=== PATIENT | female | born 1970 | race Caucasian/White ===

== ENCOUNTER 2020-05-02 10:01 | Outpatient (CLI) | payer OTHER, SELFPAY ==
--- NOTE | 2020-05-02 10:04 | ECG_ITS ---
Measurements Intervals [place] Rate: 65 P: 37 WA: 166 QRS: 17 QRSD: 93 T: 40 QT: 403 QTc: 420 Interpretive Statements SINUS RHYTHM INCOMPLETE RIGHT BUNDLE BRANCH BLOCK BORDERLINE ECG Electronically Signed On 05-02-2020 10:15:00 CDT by Valentin Najera D.O.
== END 2020-05-02 10:02 | disposition home or self-care (01) ==
LOC: ANHSURGERY 10:04
PROVIDERS: PCP Family Medicine; Visit Provider Otolaryngology
DX: I10 Essential (primary) hypertension (principal); I45.10 Unspecified right bundle-branch block
CPT/HCPCS: 93005

== ENCOUNTER 2020-05-03 00:44 | Outpatient (CLI) | payer OTHER, SELFPAY ==
[2020-05-03 18:42] LABS: SARS-CoV-2 RNA PCR Negative
== END 2020-05-03 00:45 | disposition home or self-care (01) ==
LOC: ANHCOVIDDT 00:44
PROVIDERS: PCP Family Medicine; Visit Provider Otolaryngology
DX: Z01.812 Encounter for preprocedural laboratory examination (principal); Z20.828 Contact with and (suspected) exposure to other viral communicable diseases
CPT/HCPCS: 87635; C9803; U0003

== ENCOUNTER 2020-05-05 01:32 | Day surgery (SDC) | payer OTHER, SELFPAY ==
[2020-04-28 13:46] VITALS: BMI 36.0
--- NOTE | 2020-05-04 16:05 | PM.IMHP ---
H&P: HPI History of Present Illness Date/Time: 05/04/20 16:05 Chief complaint: Chronic Tonsilitis Narrative: 49-year-old female with no significant past medical history other than Crohn's disease and a distant history of tachycardia for which the patient takes a baby aspirin daily. The patient presents with 1.5 years of sore throat and tonsil lithiasis. No inciting factor no provoking factor only palate in factor is a 3 month history of antibiotic use 1st the patient took for different reason. Review of Systems Constitutional: Constitutional: Denies fatigue and Denies fever(s) Eyes: Eyes: Denies blurry vision and Denies change in vision ENT: Reports as per HPI Cardiovascular: Cardiovascular: Denies chest pain Respiratory: Respiratory: Denies cough Endocrine: Endocrine: Denies fatigue Hematologic/Lymphatic: Hematologic/Lymphatic: Denies lymphadenopathy FOR[facility]LY [facility], [facility] Social History Social History Smoking packs per day: 0.5 Smoking cigarettes per day: 10.0 Years smoked: 15 Smoking pack-years: 7.50 Smoking status: Former smoker Tobacco type: cigarettes Second hand tobacco smoke exposure: No Smoking end date: 09/22/05 Additional smoking assessment comments: QUIT 14 YEARS AGO Alcohol intake: current Substance use: never Substance use type: does not use Additional occupation/education comments: Self Employed Gender identity (if verbalized by the patient): Female Spiritual care concerns: No Agree to blood products: Yes Meds Home Medications and Allergies Home Medications Medication Instructions Recorded Confirmed Type blood sugar diagnostic #100 each 09/30/19 Rx sulfasalazine 500 mg tablet 1,500 mg PO BID tablet 10/13/19 04/28/20 History lisinopril 10 mg tablet 10 mg PO DAILY #90 tablet 10/14/19 04/28/20 Rx apple cider vinegar 600 mg capsule 700 mg PO DAILY cap 11/11/19 04/28/20 History aspirin 81 mg tablet,delayed 81 mg PO DAILY 11/11/19 04/28/20 History release azathioprine 50 mg tablet 300 mg PO DAILY tablet 11/11/19 04/28/20 History azelastine 0.05 % eye drops 1 drop EACH EYE BID PRN 11/11/19 04/28/20 History certolizumab pegol 400 mg SUB-Q MONTHLY 11/11/19 04/28/20 History cholecalciferol (vitamin D3) 1,250 50,000 unit PO WEEKLY 11/11/19 04/28/20 History mcg (50,000 unit) capsule fluticasone propionate 50 1 spray NASAL DAILY 11/11/19 04/28/20 History mcg/actuation nasal spray,suspension folic acid 1 mg tablet 1 mg PO DAILY 11/11/19 04/28/20 History garlic 5,000 mcg tablet 5 mg PO DAILY 11/11/19 04/28/20 History alprazolam 0.5 mg tablet 0.5 mg PO TID PRN #90 tablet 01/03/20 04/28/20 Rx metformin 2,000 mg PO QPM 04/28/20 04/28/20 History wheat dextrin 3 gram/3.5 gram oral 1 packet PO DAILY 04/28/20 04/28/20 History powder packet Allergies Allergy/AdvReac Type Severity Reaction Status Date / Time ciprofloxacin Allergy Unknown RED Verified 04/28/20 13:47 STREAKS UP ARM codeine Allergy Unknown Abdominal Verified 04/28/20 13:47 discomfort walnut Allergy THROAT Verified 04/28/20 13:47 SWELLING Exam Const: General: cooperative, healthy appearing, comfortable, well developed and alert HENMT: Head: normal to inspection, normocephalic and atraumatic Ears: hearing grossly normal bilaterally, external ears normal, TM's normal bilaterally and EAC's normal General nose exam: Normal external nose present, Normal nares present, No nasal polyps present, Normal nasal mucous membranes and turbinates present and Normal septum present Face and sinus: normal facial exam Mouth: Yes Normal oral and palatal mucosa present, Yes lip normal, Yes tongue normal and Yes moist mucous membranes Teeth and gingiva: dentition normal and gingiva normal Throat: uvula midline and other ( Erythematous pharynx and tonsils asymmetric) Eyes: General: appearance normal, both eyes and all related structures Periorb
[2020-05-05] VITALS (11 sets, daily range): BP systolic 120–143; BP diastolic 73–101; PULSE 62–85; RESP 12–18; TEMP 36.4; O2SAT 99–100
[2020-05-05] MEDS: ACETAMINOPHEN 500 MG TABLET 1000 MG PO (06:50)
[2020-05-05] MEDS: LACTATED RINGERS 1,000 ML 30 ML IV CONT ×2 (06:50→08:35)
[2020-05-05 06:58] LABS: Glucose Point of Care 114 (65-105)
--- NOTE | 2020-05-05 07:15 | WPDHPUPDATE1 ---
History and Physical Update Update Date/Time: 05/05/20 07:15 History and Physical has been reviewed, including an updated exam of the patient. There are NO changes in the patient's condition. Risks, benefits, and alternatives have been discussed and questions answered. Patient agrees to proceed with procedure.
[2020-05-05] MEDS: SCOPOLAMINE 1.5 MG PATCH TRANSDERM (07:20)
[2020-05-05 08:40] LABS: Glucose Point of Care 113 (65-105)
[2020-05-05] MEDS: ONDANSETRON INJ 4 MG/2 ML VIAL IV PUSH (09:13)
[2020-05-05] MEDS: diphenhydrAMINE HCl INJ 50 MG/ML VIAL 25 MG IV PUSH (09:16)
--- NOTE | 2020-05-05 10:16 | PM.PROC ---
Procedure Note - Detailed Date of procedure: 05/05/20 Pre-op diagnosis: Chronic Tonsilitis Post-op diagnosis: same Procedure performed: 1. Tonsillectomy Description of procedure: patient was correctly identified and consent was verified in the preoperative area. The patient was then brought to the operating room and a time-out was performed. General anesthesia was induced and endotracheal tube was secured the patient's airway and left in the midline. Mango mouth gag was placed in the patient's mouth exposing the bilateral tonsils. The tonsils were erythematous and cryptic with a scarred appearance. Bovie electrocautery with a protected tip at a setting of 10 was utilized to perform a extracapsular dissection of the bilateral tonsils. Suction Bovie at a setting of 20 was utilized for hemostasis. following the Tonsillectomy a red rubber catheter was placed through the nose and adenoid pad was examined. Minimal adenoid tissue present, And this was not removed. Following the procedure the mouth gag was relaxed for 20 seconds and reopened no bleeding was noted. Care of the patient was returned to anesthesiology as this marked the end of the procedure. Anesthesia: GLMA Surgeon: Bao Ott MD Estimated blood loss (mL): 25 Drains: No Pathology: yes ( left and right tonsil) Complications: No immediate complications Condition: stable Disposition: PACU Findings: Erythematous scarred and bilateral tonsils minimal adenoid tissue
[2020-05-05] MEDS: IBUPROFEN SUSPENSION 200 MG/10 ML UDC 400 MG PO (10:32)
--- NOTE | 2020-05-08 09:50 | SUR.PHASEII ---
LATE ENTRY: I CALLED THIS PATIENT ON 05/06/20 TO CHECK ON HER. SHE REPORTED PERSISTENT THROAT PAIN 6-7/10 AND NECK SWELLING EVEN THOUGH TAKING TYLENOL, IBUPROFEN AND OXYCODONE AND APPLYING ICE PACKS TO NECK. PT REPORTED SOME DIFFICULTY BREATHING IF SHE LAID FLAT ON HER BACK BUT WAS ABLE TO BREATHE WITHOUT DIFFICULTY WHEN ELEVATING HEAD WITH 3 PILLOWS. PT ALSO REPORTED NASAL CONGESTION. I SUGGESTED COOL MIST VAPORIZER AND TO CALL THE SURGEON TO REVIEW HER SYMPTOMS. PT SAID SHE COULD DEAL WITH THE PAIN AND DIDN'T WANT TO CALL THE SURGEON. I INSTRUCTED HER TO GO TO THE ER IF SHE HAD DIFFICULTY BREATHING.
--- NOTE | 2020-07-04 09:57 | WPDANESEPPF ---
Anes - Initial Pre Proc Eval Procedure: Operation Date: 05/05/20 07:30 Proposed Procedures p Tonsillectomy - Bao Ott MD Date/Time: 07/04/20 09:57 Surgeon: Bao Ott MD Pre Op Diagnosis: Chronic Tonsilitis Patient Data Age: 50 Gender: F Height: 5 ft 4 in Weight: 94.2 kg Last Vital Signs Temp 36.4 C L 05/05/20 08:16 Pulse 67 05/05/20 10:55 Resp 14 05/05/20 10:55 BP 123/73 05/05/20 10:55 Pulse Ox 100 05/05/20 10:55 Allergies Allergy/AdvReac Type Severity Reaction Status Date / Time ciprofloxacin Allergy Unknown RED Verified 05/18/20 09:23 STREAKS UP ARM codeine Allergy Unknown Abdominal Verified 05/18/20 09:23 discomfort walnut Allergy THROAT Verified 05/18/20 09:23 SWELLING Home Medications Medication Instructions Recorded Confirmed Type blood sugar diagnostic #100 each 09/30/19 Rx sulfasalazine 500 mg tablet 1,500 mg PO BID tablet 10/13/19 04/28/20 History lisinopril 10 mg tablet 10 mg PO DAILY #90 tablet 10/14/19 04/28/20 Rx apple cider vinegar 600 mg capsule 700 mg PO DAILY cap 11/11/19 04/28/20 History aspirin 81 mg tablet,delayed 81 mg PO DAILY 11/11/19 04/28/20 History release azathioprine 50 mg tablet 300 mg PO DAILY tablet 11/11/19 04/28/20 History azelastine 0.05 % eye drops 1 drop EACH EYE BID PRN 11/11/19 04/28/20 History certolizumab pegol 400 mg SUB-Q MONTHLY 11/11/19 04/28/20 History cholecalciferol (vitamin D3) 1,250 50,000 unit PO WEEKLY 11/11/19 04/28/20 History mcg (50,000 unit) capsule fluticasone propionate 50 1 spray NASAL DAILY 11/11/19 04/28/20 History mcg/actuation nasal spray,suspension folic acid 1 mg tablet 1 mg PO DAILY 11/11/19 04/28/20 History garlic 5,000 mcg tablet 5 mg PO DAILY 11/11/19 04/28/20 History alprazolam 0.5 mg tablet 0.5 mg PO TID PRN #90 tablet 01/03/20 04/28/20 Rx metformin 2,000 mg PO QPM 04/28/20 04/28/20 History wheat dextrin 3 gram/3.5 gram oral 1 packet PO DAILY 04/28/20 04/28/20 History powder packet oxycodone 5 mg PO Q8H PRN #150 ml 05/05/20 Rx oxycodone 5 mg/5 mL oral solution 5 mg PO Q8H PRN #150 ml 05/05/20 Rx oxycodone 5 mg/5 mL oral solution 5 mg PO Q8H PRN #150 ml 05/05/20 Rx lidocaine HCl 2 % mucosal solution 15 ml PO TID #600 ml 05/09/20 Rx oxycodone 5 mg/5 mL oral solution 5 mg PO Q8H PRN #50 ml 05/10/20 Rx Patient hx anesthesia problems: none Family hx anesthesia problems: none PMFSH Past Medical History Medical History Crohn disease JUDAH (generalized anxiety disorder) Hyperlipidemia Hypertension Tonsil stone Type 2 diabetes mellitus Surgical History Surgical History H/O abdominal hysterectomy History of appendectomy History of bladder repair surgery History of cholecystectomy Family History Family History Father Family history of mental disorder Hypertension Family history of elevated blood lipids Grandparent Hypertension Asthma Family history of elevated blood lipids Family history of cardiovascular disease Family history of kidney disease Malignant neoplasm of prostate Family history of lung cancer Mother Family history of malignant neoplasm of brain Social History Social History Smoking packs per day: 0.5 Smoking cigarettes per day: 10.0 Years smoked: 15 Smoking pack-years: 7.50 Smoking status: Former smoker Tobacco type: cigarettes Second hand tobacco smoke exposure: No Smoking end date: 09/22/05 Additional smoking assessment comments: QUIT 14 YEARS AGO Alcohol intake: current Substance use: never Substance use type: does not use Additional occupation/education comments: Self Employed Gender identity (if verbalized by the patient): Female Spiritual care concerns: No
== END 2020-05-05 11:18 | disposition home or self-care (01) ==
PROVIDERS: PCP Family Medicine; Visit Provider Otolaryngology
PROC: (CPT 42826; principal; 2020-05-05 07:30)
DX: J35.01 Chronic tonsillitis (principal); Z87.891 Personal history of nicotine dependence; Z79.82 Long term (current) use of aspirin; Z79.84 Long term (current) use of oral hypoglycemic drugs
CPT/HCPCS: 42826; 88304; A9270; J0330; J1100; J1200; J2250; J2405; J2704; J3010; J7120

== ENCOUNTER → 2021-03-12 00:24 | Outpatient (CLI) | payer OTHER, SELFPAY | PROVIDERS: PCP Family Medicine; Visit Provider Internal Medicine Gastroenterology | DX: Z01.812 Encounter for preprocedural laboratory examination (principal); Z20.822 Contact with and (suspected) exposure to COVID-19 | CPT/HCPCS: C9803; U0003; U0005 ==

== ENCOUNTER 2021-03-13 08:00 | Outpatient (CLI) | payer OTHER, SELFPAY ==
[2021-03-13 14:49] LABS: EDCOVIDSCREEN Negative (Negative)
== END 2021-03-13 08:01 | disposition home or self-care (01) ==
LOC: ANHLAB 03-21 10:43
PROVIDERS: Visit Provider Internal Medicine Gastroenterology
DX: Z01.812 Encounter for preprocedural laboratory examination (principal); Z20.822 Contact with and (suspected) exposure to COVID-19
CPT/HCPCS: 36415; 87426; C9803

== ENCOUNTER 2021-03-15 01:12 | Day surgery (SDC) | payer OTHER, SELFPAY ==
[2021-02-23 13:48] VITALS: BMI 35.9
[2021-03-15 07:52] VITALS: BP 149/88; PULSE 79; RESP 18; TEMP 35.5; O2SAT 100; BMI 36.1
[2021-03-15] MEDS: LACTATED RINGERS 1,000 ML 150 ML IV CONT (08:11)
--- NOTE | 2021-03-15 08:33 | WPDANESEPPF ---
Anes - Initial Pre Proc Eval Procedure: Operation Date: 03/15/21 09:00 Proposed Procedures p Colonoscopy - Kleber Angeles DO Date/Time: 03/15/21 08:33 Surgeon: Kleber Angeles DO Pre Op Diagnosis: crohn's disease Patient Data Age: 50 Gender: F Height: 1.63 m Weight: 95.4 kg Last Vital Signs Temp 35.5 C L 03/15/21 07:52 Pulse 79 03/15/21 07:52 Resp 18 03/15/21 07:52 BP 149/88 H 03/15/21 07:52 Pulse Ox 100 03/15/21 07:52 Allergies Allergy/AdvReac Type Severity Reaction Status Date / Time ciprofloxacin Allergy Unknown RED Verified 03/15/21 07:50 STREAKS UP ARM codeine Allergy Unknown Abdominal Verified 03/15/21 07:50 discomfort walnut Allergy THROAT Verified 03/15/21 07:50 SWELLING Home Medications Medication Instructions Recorded Confirmed Type sulfasalazine 500 mg tablet 1,500 mg PO BID tablet 10/13/19 03/15/21 History apple cider vinegar 600 mg capsule 700 mg PO DAILY cap 11/11/19 03/15/21 History aspirin 81 mg tablet,delayed 81 mg PO DAILY 11/11/19 03/15/21 History release azathioprine 50 mg tablet 300 mg PO DAILY tablet 11/11/19 03/15/21 History azelastine 0.05 % eye drops 1 drop EACH EYE BID PRN 11/11/19 03/15/21 History certolizumab pegol 400 mg SUB-Q MONTHLY 11/11/19 03/15/21 History cholecalciferol (vitamin D3) 1,250 50,000 unit PO WEEKLY 11/11/19 03/15/21 History mcg (50,000 unit) capsule fluticasone propionate 50 1 spray NASAL DAILY 11/11/19 03/15/21 History mcg/actuation nasal spray,suspension folic acid 1 mg tablet 1 mg PO DAILY 11/11/19 03/15/21 History garlic 5,000 mcg tablet 5 mg PO DAILY 11/11/19 03/15/21 History wheat dextrin 3 gram/3.5 gram oral 1 packet PO DAILY 04/28/20 03/15/21 History powder packet blood sugar diagnostic #100 each 10/13/20 03/15/21 Rx lisinopril 10 mg tablet 10 mg PO DAILY #90 tablet 10/13/20 03/15/21 Rx metformin 1,000 mg tablet 2,000 mg PO QPM #180 tablet 10/13/20 03/15/21 Rx alprazolam 0.5 mg tablet 0.5 mg PO TID PRN #90 tablet 10/14/20 03/15/21 Rx Patient hx anesthesia problems: none Family hx anesthesia problems: none PMFSH Past Medical History Medical History Crohn disease JUDAH (generalized anxiety disorder) Hyperlipidemia Hypertension Tonsil stone Type 2 diabetes mellitus Vitamin D deficiency Surgical History Surgical History H/O abdominal hysterectomy H/O colonoscopy H/O esophagogastroduodenoscopy History of appendectomy History of bladder repair surgery History of cholecystectomy Family History Family History Father Family history of mental disorder Hypertension Family history of elevated blood lipids Grandparent Hypertension Asthma Family history of elevated blood lipids Family history of cardiovascular disease Family history of kidney disease Malignant neoplasm of prostate Family history of lung cancer Mother Family history of malignant neoplasm of brain Social History Social History Smoking packs per day: 1 Smoking cigarettes per day: 20.0 Years smoked: 30 Smoking pack-years: 30.00 Smoking status: Former smoker Tobacco type: cigarettes Second hand tobacco smoke exposure: No Smoking end date: 09/22/05 Additional smoking assessment comments: QUIT 14 YEARS AGO Alcohol intake: current Alcohol use details: 1 drink per month Substance use: never Substance use type: does not use Living arrangements: with family Additional occupation/education comments: Self Employed Gender identity (if verbalized by the patient): Female Spiritual care concerns: No Agree to blood products: Yes Anes - Eval Final PreProcedure Day of Procedure 03/15/21 08:33 Patient weight: obese Heart: regular rate and rhythm Lung
--- NOTE | 2021-03-15 09:08 | WPDGICN ---
GI Consult Note Consult date/time: 03/15/21 09:08 HPI: This very pleasant lady's here for colonoscopy. This very pleasant lady seen in consultation request the primary physician. Impression: Crohn's disease. The patient is here for screening and surveillance. Anxiety. HLD. HTN. Obesity. Tonsillar stone. Vitamin-D deficiency. Diabetes mellitus. History of COVID-19 infection. Recommendation: Colonoscopy. History this very pleasant lady has a history of Crohn's disease. She is on multiple medications to control her Crohn's. Her GI review systems remarkable some diarrhea of the morning of the preparation. This was prior to her preparation. Hematochezia, melena acholic stools or tonight. She is here for screening and surveillance. physical examination: General: very pleasant patient in no acute distress. HEENT: Head was normocephalic sclerae is clear mouth without masses neck was supple. Heart: Rate rhythm regular without S3 or S4. Lungs: CTA. Abdomen: Soft with no guarding or rigidity. Bowel sounds were active. Neurologic: Cranial nerves 2 through 12 intact. No focal defects. No clonus. Musculoskeletal system: Revealed no joint tenderness or swelling no muscle atrophy. Extremities: Reveal no significant edema. Skin: Warm and dry with normal turgor. Mental status: intact. Patient is alert and oriented. Review of Systems Review of Systems: All systems reviewed & are unremarkable except as noted in HPI and below PMFSH Past Medical History Medical History (Updated 03/15/21 @ 09:10 by Kleber Angeles DO) COVID-19 Crohn disease JUDAH (generalized anxiety disorder) Hyperlipidemia Hypertension Tonsil stone Type 2 diabetes mellitus Vitamin D deficiency Surgical History Surgical History H/O abdominal hysterectomy H/O colonoscopy H/O esophagogastroduodenoscopy History of appendectomy History of bladder repair surgery History of cholecystectomy Family History Family History Father Family history of mental disorder Hypertension Family history of elevated blood lipids Grandparent Hypertension Asthma Family history of elevated blood lipids Family history of cardiovascular disease Family history of kidney disease Malignant neoplasm of prostate Family history of lung cancer Mother Family history of malignant neoplasm of brain Social History Social History Smoking packs per day: 1 Smoking cigarettes per day: 20.0 Years smoked: 30 Smoking pack-years: 30.00 Smoking status: Former smoker Tobacco type: cigarettes Second hand tobacco smoke exposure: No Smoking end date: 09/22/05 Additional smoking assessment comments: QUIT 14 YEARS AGO Alcohol intake: current Alcohol use details: 1 drink per month Substance use: never Substance use type: does not use Living arrangements: with family Additional occupation/education comments: Self Employed Gender identity (if verbalized by the patient): Female Spiritual care concerns: No Agree to blood products: Yes Meds Home Medications and Allergies Home Medications Medication Instructions Recorded Confirmed Type sulfasalazine 500 mg tablet 1,500 mg PO BID tablet 10/13/19 03/15/21 History apple cider vinegar 600 mg capsule 700 mg PO DAILY cap 11/11/19 03/15/21 History aspirin 81 mg tablet,delayed 81 mg PO DAILY 11/11/19 03/15/21 History release azathioprine 50 mg tablet 300 mg PO DAILY tablet 11/11/19 03/15/21 History azelastine 0.05 % eye drops 1 drop EACH EYE BID PRN 11/11/19 03/15/21 History certolizumab pegol 400 mg SUB-Q MONTHLY 11/11/19 03/15/21 History cholecalciferol (vitamin D3) 1,250 50,000 unit PO WEEKLY 11/11/19 03/15/21 History mcg (50,000 unit) capsule fluticasone propionate 50 1 spray
[2021-03-15 09:39] VITALS: BP 109/64; PULSE 71; RESP 18; O2SAT 100
[2021-03-15 09:49] VITALS: BP 118/68; PULSE 64; RESP 20; O2SAT 100
[2021-03-15 09:59] VITALS: BP 132/92; PULSE 67; RESP 13; O2SAT 98
[2021-03-15 10:46] LABS: Glucose Point of Care 88 mg/dl (65-105)
== END 2021-03-15 10:00 | disposition home or self-care (01) ==
PROVIDERS: PCP Family Medicine; Visit Provider Internal Medicine Gastroenterology
PROC: 0DJD8ZZ Inspection of Lower Intestinal Tract, Via Natural or Artificial Opening Endoscopic (ICD-10-PCS; CPT 45378; principal; 2021-03-15 09:00)
DX: Z12.11 Encounter for screening for malignant neoplasm of colon (principal); K57.30 Diverticulosis of large intestine without perforation or abscess without bleeding; K52.89 Other specified noninfective gastroenteritis and colitis; K50.90 Crohn's disease, unspecified, without complications; F41.9 Anxiety disorder, unspecified; E78.5 Hyperlipidemia, unspecified; I10 Essential (primary) hypertension; E11.9 Type 2 diabetes mellitus without complications; Z86.16 Personal history of COVID-19; F41.1 Generalized anxiety disorder; Z87.891 Personal history of nicotine dependence; Z79.82 Long term (current) use of aspirin; Z79.84 Long term (current) use of oral hypoglycemic drugs; E66.9 Obesity, unspecified; Z68.36 Body mass index [BMI] 36.0-36.9, adult
CPT/HCPCS: 45380; 36415; 82948; 87426; 88305; C9803; J7120

== ENCOUNTER → 2022-01-23 12:39 | Outpatient (CLI) | payer OTHER, SELFPAY ==
--- NOTE | ~2022-01-23 | XR_ITS ---
EXAMINATION: XR chest 2V Exam Date/Time: 01/23/2022 12:53 CDT CLINICAL HISTORY: claims account specialist drug therapy Comparison: 07/31/10. RESULT: Lines, tubes, and devices: None. Lungs and pleura: Clear. Cardiomediastinal silhouette: Stable cardiomediastinal silhouette. Other: No acute osseous or upper abdominal finding. IMPRESSION: No acute cardiopulmonary process Reviewed, dictated and finalized at location K.
== END ==
PROVIDERS: PCP Internal Medicine Gastroenterology; Visit Provider Internal Medicine Gastroenterology
DX: Z79.899 Other long term (current) drug therapy (principal)
CPT/HCPCS: 71046